=== PATIENT | female | born 1950 | race Hispanic/Latino ===

== ENCOUNTER → 2018-02-04 | Day surgery (SDC) | payer MEDICARE ==
[2018-02-03 11:40] LABS: BASOPHILS # (AUTO) 0.1 (0.0-0.1); BASOPHILS % 0.5 % (0.0-1.0); EOSINOPHILS # (AUTO) 0.4 (0.0-0.4); HEMATOCRIT 36.2 % (34.2-44.1); HEMOGLOBIN 11.5 g/dL (12.0-16.0); LYMPHOCYTES # (AUTO) 3.2 (1.0-3.2); LYMPHOCYTES % 24.3 % (18.0-39.1); MEAN CORPUSCULAR HEMOGLOBIN 27.6 pg (28-32); MEAN CORPUSCULAR HGB CONC 31.8 g/dL (31-35); MEAN CORPUSCULAR VOLUME 86.8 fL (81-99); MONOCYTES # (AUTO) 0.9 (0.2-0.8); MONOCYTES % 6.7 % (4.4-11.3); NEUTROPHILS # (AUTO) 8.6 (2.1-6.9); NEUTROPHILS % 65.3 % (38.7-80.0); PLATELET COUNT 392 x10e3/uL (140-360); RED BLOOD COUNT 4.17 x10e6/uL (3.6-5.1); RED CELL DISTRIBUTION WIDTH 13.9 % (11.7-14.4)
[~2018-02-04] MED LIST: ALENDRONATE SOD70 MG PO; AMLODIPINE BESYL5 MG PO; CRESTOR20 MG PO; FENTANYL CITRATE/PF 100MCG/2 ML INJ ONE; HYDROCHLOROTHIA25 MG PO; LEVOTHYROXINE25 MCG PO; LOSARTAN-HCTZ1 EAC2 PO; METFORMIN HCL500 MG PO; MIDAZOLAM HCL 2 MG/2 ML VIAL ONE; PROPOFOL IV EMULSION 10 MG/ML 50 ML VIAL ONE; TRESIBA SQ; TRULICITY SQ; VITAMIN D350000 UNIT PO
--- OUTSIDE RECORDS SUMMARY | 2018-02-04 05:32 | XMS REPORT ---
Author Organization Unknown Address [address] [place] [address] Phone [phone] Care Team Providers Care Mask Inspector Name Role Phone Juan Pablo, R Unavailable Unavailable Allergies Code Code System Name Reaction Severity Status Onset NKDA Medications Name Status Start Date Stop Date alendronate 70 mg tablet Take 1 tablet every week by oral route for 90 days. Active Not available amlodipine 5 mg tablet TAKE 1 TABLET BY MOUTH EVERY DAY Active Not available atorvastatin 20 mg tablet Completed 01/04/2018 BD Insulin Syringe Ultra-Fine 1 mL 31 gauge x 5/" Active Not available BD Ultra-Fine Mini Pen Needle 31 gauge x 12/04" Active Not available cholecalciferol (vitamin D3) 50,000 unit capsule Take 1 capsule every week by oral route for 90 days. Active Not available gemfibrozil 600 mg tablet Completed 2016 Humalog U-100 Insulin 100 unit/mL subcutaneous solution Completed 2017 hydrochlorothiazide 25 mg tablet TAKE 1 TABLET BY MOUTH EVERY DAY Active Not available Januvia 100 mg tablet Take 1 tablet every day by oral route. Completed 11/26/2016 Lantus U-100 Insulin 100 unit/mL subcutaneous solution inject 60 units at bed time every day Completed 11/26/2016 levothyroxine 25 mcg tablet TAKE 1 TABLET(S) EVERY DAY BY ORAL ROUTE FOR 90 DAYS. Active Not available losartan 100 mg-hydrochlorothiazide 12.5 mg tablet Take 1 tablet every day by oral route for 90 days. Active Not available losartan 50 mg tablet Completed 06/01/2017 losartan 50 mg-hydrochlorothiazide 12.5 mg tablet Completed 01/04/2018 metformin 500 mg tablet TAKE 1 TABLET(S) TWICE A DAY BY ORAL ROUTE FOR 90 DAYS. Active Not available rosuvastatin 20 mg tablet Take 1 tablet every day by oral route for 90 days. Active Not available Toujeo SoloStar U-300 Insulin 300 unit/mL (1.5 mL) subcutaneous pen inject 50-70 units once a day Completed 01/04/2018 Tresiba FlexTouch U-200 insulin 200 unit/mL (3 mL) subcutaneous pen Inject 50 units every day by subcutaneous route for 30 days. Active Not available Trulicity 1.5 mg/0.5 mL subcutaneous pen injector Inject 0.5 mL every week by subcutaneous route for 90 days. 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 Body Mass Index 30+ - Obesity Active 01/04/2018 Procedures Date Name Performed by 09/21/1978 Delivery Information not available [address] [place] [address] (Work Place) 2016 MAMMO, Screening, Bilateral [facility] [address] [facility] [place] [address] (Work Place) 2016 Bone Density, Dual Photon Absorptiometry [facility] [address] [facility] [address] [place], [place] [id number] (Work Place) 06/01/2017 MAMMO, Screening, Bilateral [facility] [address] [place] [address] (Work Place) 01/04/[address] [phone] (Work Place) 01/04/2018 US, Echocardiogram [facility] [address] [facility] [address] [place] [address] (Work Place) Lab Results Date Name Specimen Result Interpretation Description Value Range Status Address 10/05/2017 PTH (Parathyroid Hormone), Intact, Serum or Plasma High Parathyroid Hormone, Intact 70 pg/mL 14-64 pg/mL Final [facility]: [address] ana [address] 10/05/2017 Lipid Panel, Serum High Cholesterol, Total 211 mg/dL < 200 mg/dL Final [facility]: [address] Normal HDL Cholesterol 54 mg/dL >50 mg/dL Final [facility]: [address] High Triglycerides 355 mg/dL <150 mg/dL Final [facility]: [address] High LDL-cholesterol 110 mg/dL (calc) Final [facility]: [address] Normal Chol/hdlc Ratio 3.9 (calc) <5.0 (calc) Final [facility]: [address] High Non HDL Cholesterol 157 mg/dL (calc) <130 mg/dL (calc) Final [facility]: [address] 10/05/2017 CMP, Serum or Plasma High Glucose 119 mg/dL 65-99 mg/ dL Final [facility]: [address] Normal Urea Nitrogen (BUN) 24 mg/dL 7-25 mg/dL Final [facility]: [address] High Creatinine 1.15 mg/dL 0.50-0.99 mg/dL Final [facility]: [address] Low eGFR Non-afr. [place] African 50 mL/min/1.73m2 > or=60 mL/min/ 1.73m2 Final [facility]: [address] Low eGFR 58 mL/min/1.73m2 > or=60 mL/min/ 1.73m2 Final [facility]: [address] Normal BUN/creatinine Ratio 21 (calc) 6-22 (calc) Final [facility]: [address] Normal Sodium 138 mmol/L 135-146 mmol/L Final [facility]: [address] Normal Potassium 4.2 mmol/L 3.5-5.3 mmol/L Final [facility]: [address] [place] Normal Chloride 99 mmol/L 98-110 mmol/L Final [facility]: [address] [place] Normal Carbon Dioxide 20 mmol/L 20-31 mmol/L Final [facility]: [address] [place] Normal Calcium 10.1 mg/dL 8.6-10.4 mg/dL Final [facility]: [address] [place] Normal Protein, Total 7.4 g/dL 6.1-8.1 g/dL Final [facility]: [address]055 [facility] Albumin 4.4 g/dL 3.6-5.1 g/dL Final [facility]: [address] [place] Normal Globulin 3.0 g/dL (calc) 1.9-3.7 g/dL (calc) Final [facility]: [address] [place] Normal Albumin/globulin Ratio 1.5 (calc) 1.0-2.5 (calc) Final [facility]: [address] [place] Normal Bilirubin, Total 0.3 mg/dL 0.2-1.2 mg/dL Final [facility]: [address] [place] Normal Alkaline Phosphatase 105 U/L 33-130 U/L Final [facility] 9055 [facility] Normal Ast 13 U/L 10-35 U/L Final [facility]: 9055 [facility] Normal Alt 14 U/L 6-29 U/L Final [facility]: [address] Let[address] Powers [place] 10/05/2017 CBC W/ Auto Diff High White Blood Cell Count 11.7 thousand/uL 3.8-10.8 thousand/uL Final [facility]: 9055 [facility] Red Blood Cell Count 4.17 million/uL 3.80-5.10 million/ uL Final [facility]: 9055 [facility] Normal Hemoglobin 11.7 g/dL 11.7-15.5 g/dL Final [facility]: 9055 [facility] Normal Hematocrit 35.0 % 35.0-45.0 % Final [facility]: [address] Normal Mcv 83.9 fL 80.0-100.0 fL Final [facility]: [address] Normal Mch 28.1 pg 27.0-33.0 pg Final [facility]: [address] Normal Mchc 33.4 g/dL 32.0-36.0 g/dL Final [facility]: [address] Normal Rdw 13.9 % 11.0-15.0 % Final [facility]: [address] High Platelet Count 475 thousand/uL 140-400 thousand/uL Final [facility]: [address] Normal Mpv 10.7 fL 7.5-12.5 fL Final [facility]: [address] Normal Absolute Neutrophils 7324 cells/uL 3807-8640 cells/uL Final [facility]: [address] Normal Absolute Lymphocytes 3194 cells/uL 850-3900 cells/uL Final [facility]: [address] Normal Absolute Monocytes 761 cells/uL 200-950 cells/uL Final [facility]: [address] Normal Absolute Eosinophils 374 cells/uL 15-500 cells/uL Final [facility]: [address] [place] Normal Absolute Basophils 47 cells/uL 0-200 cells/uL Final [facility]: [address] Normal Neutrophils 62.6 % Final [facility]: [address] Normal Lymphocytes 27.3 % Final [facility]: [address] Normal Monocytes 6.5 % Final [facility]: [address] Normal Eosinophils 3.2 % Final [facility]: [address] Powers, [place] Normal Basophils 0.4 % Final [facility]: [address] 10/05/2017 T4, Free, Serum Normal T4, Free 1.2 NG/dL 0.8-1.8 NG/ dL Final [facility]: [address] Powers, [place] 10/05/2017 TSH, Serum or Plasma Normal Tsh 0.69 mIU/L 0.40-4.50 mIU/L Final [facility]: [address] 10/05/2017 Vitamin D, 25-Hydroxy, Total, Serum Low Vitamin D,25-Oh, total,ia 11 NG/mL 30-100 NG/mL Final [facility]: [address] Comment Final [facility]: [address] ana [address] 10/05/2017 Test in Question- Ambiguous Order Comment Final [facility]: [address] Unclear Order: general health panel or billin Final [facility]: [address] Comment Final [facility]: [address] 10/05/2017 Test Authorization Test Name: vitamin D 25 oh ttl Final [facility]: [address] Test Code: 93722 Final [facility]: [address] Client Contact: juan butler Final [facility]: [address] [place] [address] Report Always Message Signature Final [facility]: [address] Comment Final [facility]: [address] ana [address] 10/05/2017 HbA1C (Hemoglobin a1C), Blood High Hemoglobin a1C 8.7 % of total HGB <5.7 % of total HGB Final [facility]: [address] 06/01/2017 CBC W/ Auto Diff High White Blood Cell Count 11.6 thousand/uL 3.8-10.8 thousand/uL Final [facility]: [address] Low Red Blood Cell Count 3.62 million/uL 3.80-5.10 million/uL Final [facility]: 55 [address] Low Hemoglobin 10.4 g/dL 11.7-15.5 g/dL Final [facility]: [address] Low Hematocrit 31.6 % 35.0-45.0 % Final [facility]: 55 [address] Normal Mcv 87.3 fL 80.0-100.0 fL Final [facility]: [address] Normal Mch 28.7 pg 27.0-33.0 pg Final [facility]: [address] Normal Mchc 32.9 g/dL 32.0-36.0 g/dL Final [facility]: [address] Normal [address]w 14.0 % 11.0-15.0 % Final [facility]: [address] High Platelet Count 473 thousand/uL 140-400 thousand/uL Final [facility]: [address] Normal Mpv 10.9 fL 7.5-12.5 fL Final [facility]: [address] Normal Absolute Neutrophils 6624 cells/uL 5377-6772 cells/uL Final [facility]: [address] Normal Absolute Lymphocytes 3120 cells/uL 850-3900 cells/uL Final [facility]: [address] High Absolute Monocytes 1288 cells/uL 200-950 cells/uL Final [facility]: [address] High Absolute Eosinophils 522 cells/uL 15-500 cells/uL Final [facility]: [address] Normal Absolute Basophils 46 cells/uL 0-200 cells/uL Final [facility]: [address] Normal Neutrophils 57.1 % Final [facility]: [address] Normal Lymphocytes 26.9 % Final [facility]: [address] Normal Monocytes 11.1 % Final [facility]: [address] Normal Eosinophils 4.5 % Final [facility]: [address] Normal Basophils 0.4 % Final [facility]: [address] 06/01/2017 HbA1C (Hemoglobin a1C), Blood High A1C W/eag 8.2 % 1.0- 5.7 % Final [facility]: [address] [place] Average Blood Glucose 189 mg/dL Final [facility]: [address] [place] [address], [place] 06/01/2017 PTH (Parathyroid Hormone), Intact, Serum or Plasma High Parathyroid Hormone, Intact 90 pg/mL 14-64 pg/mL Final [facility]: [address] 06/01/2017 CMP, Serum or Plasma Alt 19 U/L 0-55 U/L Final [facility]: [address] Ast 17 U/L 5-34 U/L Final [facility]: [address] Bun 14.8 mg/dL 9.8-20.1 mg/dL Final [facility]: [address] Alk Phos 93 unit/L 40-150 unit/L Final [facility]: [address] High Glucose 138 mg/dL 70-99 mg/dL Final [facility]: [address] Albumin 3.9 g/dL 3.5-5.0 g/dL Final [facility]: [address] Creatinine 1.11 mg/dL 0.57-1.11 mg/dL Final [facility]: [address] Low eGFR Non- 49 mL/min/1.73m2 >60 mL/min/ 1.73m2 Final [facility]: [address] Total Bilirubin 0.2 mg/dL 0.2-1.2 mg/dL Final [facility]: [address] Low eGFR - 60 mL/min/1.73m2 >60 mL/min/ 1.73m2 Final [facility]: [address] Sodium 145 mEq/L 136-145 mEq/L Final [facility]: [address] Potassium 4.5 mEq/L 3.5-5.1 mEq/L Final [facility]: [address] Chloride 107 mmol/L 98-107 mmol/L Final [facility]: [address] Total Protein 7.4 g/dL 6.4-8.3 g/dL Final [facility]: [address] Calcium 9.3 mg/dL 8.4-10.2 mg/dL Final [facility]: [address] Co2 25.7 mmol/L 23.0-31.0 mmol/L Final [facility]: [address] Anion Gap 12 calc Final [facility]: [address] 06/01/2017 Lipid Panel, Serum Hdl 45 mg/dL 40-60 mg/dL Final [facility]: [address] High Triglyceride 291 mg/dL 0-149 mg/dL Final [facility]: [address] VLDL Calc. 58 mg/dL Final [facility]: [address] cholesterol/HDL Ratio 3 mg/dL Final [facility]: [address] non-HDL Cholesterol Calc. 112 mg/dL 0-160 mg/dL Final [facility]: [address] Cholesterol 157 mg/dL 0-199 mg/dL Final [facility]: [address] LDL Calc. 54 mg/dL 0-130 mg/dL Final [facility]: [address] 06/01/2017 T4, Free, Serum T4 Free 0.87 NG/dL 0.70-1.48 NG/dL Final [facility]: [address] 06/01/2017 TSH, Serum or Plasma Tsh 1.452 uIU/mL 0.350-4.940 uIU /mL Final [facility]: [address] 02/26/2017 HbA1C (Hemoglobin a1C), Blood High Hemoglobin a1C 9.6 % of total HGB <5.7 % of total HGB Final [facility]: [address] EAG (mg/dL) 229 (calc) Final [facility]: [address] EAG (mmol/L) 12.7 (calc) Final [facility]: [address] 02/26/2017 T4, Total, Serum Normal T4 (Thyroxine), Total 8.9 mcg/ dL 4.5-12.0 mcg/dL Final [facility]: 9055 [facility] 02/[facility]2017 TSH, Serum or Plasma Normal Tsh 0.65 mIU/L 0.40-4.50 mIU/L Final [facility]: 9055 [facility] 02/26/2017 CBC W/ Auto Diff High White Blood Cell Count 12.0 thousand/uL 3.8-10.8 thousand/uL Final [facility]: 9055 [facility] Normal Red Blood Cell Count 4.19 million/uL 3.80-5.10 million/ uL Final [facility]: 9055 [facility] Normal Hemoglobin 11.9 g/dL 11.7-15.5 g/dL Final [facility]: [address] [place] [address] Normal Hematocrit 36.6 % 35.0-45.0 % Final [facility]: 9055 [facility] Normal Mcv 87.4 fL 80.0-100.0 fL Final [facility]: [address] [place] [address] Normal Mch 28.5 pg 27.0-33.0 pg Final [facility]: 9055 [facility] Normal Mchc 32.5 g/dL 32.0-36.0 g/dL Final [facility]: [address] [place] [address] Normal Rdw 14.8 % 11.0-15.0 % Final [facility]: 9055 [facility] Normal Platelet Count 398 thousand/uL 140-400 thousand/uL Final [facility]: 9055 [facility] Normal Mpv 8.6 fL 7.5-12.5 fL Final [facility]: [address] [place] High Absolute Neutrophils 8316 cells/uL 5826-3521 cells/uL Final [facility]: 9055 [facility] Normal Absolute Lymphocytes 2328 cells/uL 850-3900 cells/uL Final [facility]: 9055 [facility] Normal Absolute Monocytes 780 cells/uL 200-950 cells/uL Final [facility]: [address] [place] High Absolute Eosinophils 540 cells/uL 15-500 cells/uL Final [facility]: [address] [place] Normal Absolute Basophils 36 cells/uL 0-200 cells/uL Final [facility]: [address] Powers, [place] Normal Neutrophils 69.3 % Final [facility]: [address], [place] Normal Lymphocytes 19.4 % Final [facility]: [address] Powers, [place] Normal Monocytes 6.5 % Final [facility]: [address], [place] Normal Eosinophils 4.5 % Final [facility]: [address], [place] Normal Basophils 0.3 % Final [facility]: 9055 [facility] 02/26/2017 CMP, Serum or Plasma High Glucose 158 mg/dL 65-99 mg/ dL Final [facility]: [address] [place] [address] Normal Urea Nitrogen (BUN) 16 mg/dL 7-25 mg/dL Final [facility]: [address] [place] [address] Normal Creatinine 0.96 mg/dL 0.50-0.99 mg/dL Final [facility]: [address] [place] [address] Normal eGFR Non-afr. [place] 62 mL/min/1.73m2 > or=60 mL/min/ 1.73m2 Final [facility]: [address] Normal eGFR 72 mL/min/1.73m2 > or=60 mL/min/ 1.73m2 Final [facility]: [address] BUN/creatinine Ratio not applicable (calc) 6-22 (calc) Final [facility]: [address] [place] [address] Normal Sodium 140 mmol/L 135-146 mmol/L Final [facility]: [address] Normal Potassium 4.1 mmol/L 3.5-5.3 mmol/L Final [facility]: [address] Normal Chloride 101 mmol/L 98-110 mmol/L Final [facility]: [address] Normal Carbon Dioxide 25 mmol/L 20-31 mmol/L Final [facility]: [address] Normal Calcium 10.2 mg/dL 8.6-10.4 mg/dL Final [facility]: [address] Normal Protein, Total 7.7 g/dL 6.1-8.1 g/dL Final [facility]: [address] Normal Albumin 4.5 g/dL 3.6-5.1 g/dL Final [facility]: [address] Normal Globulin 3.2 g/dL (calc) 1.9-3.7 g/dL (calc) Final [facility]: [address] Normal Albumin/globulin Ratio 1.4 (calc) 1.0-2.5 (calc) Final [facility]: [address] Normal Bilirubin, Total 0.2 mg/dL 0.2-1.2 mg/dL Final [facility]: [address] Normal Alkaline Phosphatase 98 U/L 33-130 U/L Final [facility]: [address] Normal Ast 21 U/L 10-35 U/L Final [facility]: [address] Normal Alt 21 U/L 6-29 U/L Final [facility]: [address] 02/26/2017 Lipid Panel, Serum Normal Cholesterol, Total 181 mg/dL 125-200 mg/dL Final [facility]: [address] Normal HDL Cholesterol 53 mg/dL > or=46 mg/dL Final [facility]: [address] High Triglycerides 293 mg/dL <150 mg/dL Final [facility]: [address] Normal LDL-cholesterol 69 mg/dL (calc) <130 mg/dL (calc) Final [facility]: [address] Normal Chol/hdlc Ratio 3.4 (calc) < or=5.0 (calc) Final [facility]: [address] Normal Non HDL Cholesterol 128 mg/dL (calc) Final [facility]: [address]055 [address] [facility] [address], [place] 02/26/2017 PTH (Parathyroid Hormone), Intact, Serum or Plasma Normal Parathyroid Hormone, Intact 42 pg/mL 14-64 pg/mL Final [facility]: 9055 [address] [facility] [address], [place] 2016 Lipid Panel, Serum Normal Cholesterol, Total 175 mg/dL 125-200 mg/dL Final [facility]: [address], [place] Normal HDL Cholesterol 52 mg/dL > or=46 mg/dL Final [facility]: [address], [place] High Triglycerides 218 mg/dL <150 mg/dL Final [facility]: [address], [place] Normal LDL-cholesterol 79 mg/dL (calc) <130 mg/dL (calc) Final [facility]: [address], [place] Normal Chol/hdlc Ratio 3.4 (calc) < or=5.0 (calc) Final [facility]: [address], [place] Normal Non HDL Cholesterol 123 mg/dL (calc) Final [facility]: [address], [place] 2016 CMP, Serum or Plasma High Glucose 140 mg/dL 65-99 mg/ dL Final [facility]: [address], [place] Normal Urea Nitrogen (BUN) 23 mg/dL 7-25 mg/dL Final [facility]: [address], [place] High Creatinine 1.31 mg/dL 0.50-0.99 mg/dL Final [facility]: [address], [place] Low eGFR Non-afr. [place] 43 mL/min/1.73m2 > or=60 mL/min/ 1.73m2 Final [facility]: [address], [place] Low eGFR 49 mL/min/1.73m2 > or=60 mL/min/ 1.73m2 Final [facility]: [address], [place] Normal BUN/creatinine Ratio 18 (calc) 6-22 (calc) Final [facility]: [address], [place] Normal Sodium 141 mmol/L 135-146 mmol/L Final [facility]: [address] [facility], [place] Normal Potassium 3.8 mmol/L 3.5-5.3 mmol/L [facility]: [address] [facility], [place] Normal Chloride 102 mmol/L 98-110 mmol/L [facility]: [address] [facility], [place] Normal Carbon Dioxide 25 mmol/L 20-31 mmol/L Final [facility]: [address] [facility], [place] Normal Calcium 9.6 mg/dL 8.6-10.4 mg/dL [facility]: [address] [facility], [place] Normal Protein, Total 7.4 g/dL 6.1-8.1 g/dL [facility]: [address] [facility], [place] Normal Albumin 4.3 g/dL 3.6-5.1 g/dL [facility]: [address] [place] [address], [place] Normal Globulin 3.1 g/dL (calc) 1.9-3.7 g/dL (calc) Final [facility]: [address] [facility], [place] Normal Albumin/globulin Ratio 1.4 (calc) 1.0-2.5 (calc) [facility]: [address] [facility], [place] Normal Bilirubin, Total 0.2 mg/dL 0.2-1.2 mg/dL [facility]: [address] [place] [address], [place] Normal Alkaline Phosphatase 81 U/L 33-130 U/L [facility]: [address] [place] [address], [place] Normal Ast 16 U/L 10-35 U/L [facility]: [address] [place] [address], Raj[place] Normal Alt 15 U/L 6-29 U/L [facility]: [address] [facility], [place] 2016 CBC W/ Auto Diff High White Blood Cell Count 11.3 thousand/uL 3.8-10.8 thousand/uL [facility]: [address] [place] [address], Rajan Normal Red Blood Cell Count 3.97 million/uL 3.80-5.10 million/ uL [facility]: [address] [facility], [place] Low Hemoglobin 11.3 g/dL 11.7-15.5 g/dL Final [facility]: [address], [place] Normal Hematocrit 35.1 % 35.0-45.0 % Final [facility]: [address], [place] Normal Mcv 88.4 fL 80.0-100.0 fL Final [facility]: [address], [place] Normal Mch 28.5 pg 27.0-33.0 pg Final [facility]: [address], [place] Normal Mchc 32.2 g/dL 32.0-36.0 g/dL Final [facility]: [address], [place] Normal Rdw 14.1 % 11.0-15.0 % Final [facility]: [address], [place] High Platelet Count 427 thousand/uL 140-400 thousand/uL Final [facility]: [address], [place] Normal Mpv 8.9 fL 7.5-12.5 fL Final [facility]: [address], [place] High Absolute Neutrophils 7854 cells/uL 5526-8382 cells/uL Final [facility]: [address], [place] Normal Absolute Lymphocytes 2226 cells/uL 850-3900 cells/uL Final [facility]: [address], [place] Normal Absolute Monocytes 836 cells/uL 200-950 cells/uL Final [facility]: [address], [place] Normal Absolute Eosinophils 305 cells/uL 15-500 cells/uL Final [facility]: [address], [place] Normal Absolute Basophils 79 cells/uL 0-200 cells/uL Final [facility]: [address], [place] Normal Neutrophils 69.5 % Final [facility]: [address], [place] Normal Lymphocytes 19.7 % Final [facility]: [address], [place] Normal Monocytes 7.4 % Final [facility]: [address], [place] Normal Eosinophils 2.7 % Final [facility]: [address], [place] Normal Basophils 0.7 % Final [facility]: [address], [place] 2016 T4, Total, Serum Normal T4 (Thyroxine), Total 8.4 mcg/ dL 4.5-12.0 mcg/dL Final [facility]: [address] [facility], [place] 2016 TSH, Serum or Plasma High Tsh 5.19 mIU/L 0.40-4.50 mIU/ L Final [facility]: [address] [facility], [place] 2016 HbA1C (Hemoglobin a1C), Blood High Hemoglobin a1C 10.5 % of total HGB <5.7 % of total HGB Final [facility]: [address] [facility], [place] 2016 Fecal Occult Blood, Stool Fecal Globin by [employer]. ( Medicare) Final [facility]: [address] [facility], [place] Electrocardiogram No observation recorded. [facility]: [address] [facility] [address], [place] Electrocardiogram Rate & Rhythm [facility]: [address] [facility] [address], [place] Qrs [facility]: [address] [facility] [address], [place] Interval [facility]: [address] [address], [place] QRS Duration [facility] : [address] [address], [place] QT Interval [facility]: [address] [address], [place] Albumin:creatinine Ratio, Urine Type Urine Microlalbumin 30 mg/ L [facility]: [address] [facility] [address], [place] Type Urine Creatinine 200 mg/dL [facility]: [address] [address], [place] Type A:C Ratio <30 mg/g (Normal) [facility]: [address] [facility] [address], [place] Past Encounters 01/04/2018 Adult Health Examination; Advance Directive Discussed with Patient; Electrocardiogram Abnormal; Chronic Kidney Disease Due to Type 2 Diabetes Mellitus; Hypothyroidism; Hypertensive Renal Disease; Chronic Kidney Disease Stage 3; Hyperlipidemia; Vitamin D Deficiency; Osteoporosis; Pneumococcal Vaccination; Body Mass Index 30+ - Obesity; Depression Screening; Screening for Malignant Neoplasm of Colon; Hepatitis C Screening NIRMAL Mahmood: [address] [phone], Ph. 10/05/2017 Hypertensive Renal Disease; Chronic Kidney Disease Due to Type 2 Diabetes Mellitus; Hyperlipidemia; Hypothyroidism; Osteoporosis; Immunization; Chronic Kidney Disease Stage 3 Regina SwansonSYDNI: [address] [address], Ph. 06/01/2017 Chronic Kidney Disease Due to Type 2 Diabetes Mellitus; Type 2 Diabetes Mellitus ; Hypertensive Renal Disease; Hyperlipidemia; Hypothyroidism; Osteoporosis; Chronic Kidney Disease Stage 3; Screening Mammography Regina SwansonSYDNI: [id number] [place] [phone], Ph. [phone] 02/26/2017 Hyperlipidemia; Chronic Kidney Disease Due to Type 2 Diabetes Mellitus; Chronic Kidney Disease Stage 3; Hypertensive Renal Disease; Thyroid Function Tests Abnormal Regina SwansonSYDNI: [id number] [address], Ph. [phone] 11/26/2016 Type 2 Diabetes Mellitus; Subclinical Hypothyroidism; Benign Essential Hypertension; Chronic Kidney Disease Due to Type 2 Diabetes Mellitus; Chronic Kidney Disease Stage 3 Luc Almeida MD: [id number] [place] [phone], Ph. 2016 Adult Health Examination; Body Mass Index 30+ - Obesity; Benign Essential Hypertension; Type 2 Diabetes Mellitus; Diabetic on Insulin; Hyperlipidemia; Osteoporosis; Advance Directive Discussed with Patient; Postmenopausal State; Screening Mammography; Screening for Malignant Neoplasm of Colon Regina SwansonSYDNI: [address] [phone], Ph. Social History Smoking Status Never Smoker Vaccine List Vaccine Type zoster 09/21/2013 Notes: Refuses flu vaccine Plan of Care Patient Instructions Screening Recommendations 1. Vaccines Pneumococcal: discussed today and information sent with patient in their [employer] health folder Influenza: discussed today and information sent with patient in their [employer] health folder Shingles: discussed today and information sent with patient in their [employer] health folder Tetanus: discussed today and information sent with patient in their [employer] health folder 2. Mammography Screening: discussed today and information sent with patient in their [employer] health folder 3. Colorectal cancer Screening Colonoscopy: discussed today and information sent with patient in their [employer] health folder 4. Bone Mass Measurement: discussed today 5. Pap test / Pelvic Exam Screening: discussed today 6. Eye Exam Screening: discussed today 7. Cholesterol Screening: discussed today 8. Diabetes Screening: discussed today It was good to see you in the office today for your Medicare Annual Wellness Visit. You have been provided some information on healthy nutrition, including a diet rich in fruits and vegetables, minimizing simple carbohydrates, salt, and saturated fats. I want to encourage regular cardiovascular exercise such as walking at least 30 minutes daily, 5 times per week. Please remember to schedule any preventive health measures that we talked about today. You have also been provided education on fall prevention and community- based lifestyle interventions to help reduce health risks and promote healthy living in your [employer] folder. It was good to see you in the office today for your Medicare Annual Wellness Visit. You have been provided some information on healthy nutrition, including a diet rich in fruits and vegetables, minimizing simple carbohydrates, salt, and saturated fats. I want to encourage regular cardiovascular exercise such as walking at least 30 minutes daily, 5 times per week. Please remember to schedule any preventive health measures that we talked about today. You have also been provided education on fall prevention and community- based lifestyle interventions to help reduce health risks and promote healthy living in your [employer] folder. Reminders Provider Appointments None recorded. Lab None recorded. Referral None recorded. Procedures None recorded. Surgeries None recorded. Imaging None recorded. Vitals 01/04/2018 02:00PM AWV Height Weight BMI Blood Pressure 4 ft 9 in 147 lbs 31.8 kg/m2 (1) 142/85 mm[Hg] (2) 144/83 mm[Hg] 10/05/2017 02:45PM Est Patient Height Weight BMI Blood Pressure 4 ft 9 in 141.6 lbs 30.6 kg/m2 132/75 mm[Hg] 06/01/2017 01:15PM Est Patient Height Weight BMI Blood Pressure 4 ft 9 in 154 lbs 33.3 kg/m2 139/76 mm[Hg] 02/26/2017 10:00AM Est Patient Height Weight BMI Blood Pressure 4 ft 9 in 149.8 lbs 32.4 kg/m2 145/72 mm[Hg] 11/26/2016 10:30AM Est Patient Height Weight BMI Blood Pressure 4 ft 9 in 154.6 lbs 33.5 kg/m2 157/76 mm[Hg] 2016 09:30AM [employer] Height Weight BMI Blood Pressure 4 ft 9 in 150 lbs 32.5 kg/m2 142/79 mm[Hg] 10/08/2010 Weight 134.6 lbs 12/07/2008 Weight 134 lbs 04/19/2008 Weight 135.1 lbs 06/14/2007 Height Weight 4 ft 9 in 132.8 lbs 12/14/2006 Height Weight 4 ft 9 in 136.8 lbs 12/10/2006 Height Weight 4 ft 9 in 136.7 lbs 10/23/2006 Height Weight 4 ft 9 in 136.7 lbs 09/09/2006 Height Weight 4 ft 9 in 139.3 lbs 08/10/2006 Weight 140.6 lbs 07/29/2006 Weight 138 lbs 07/24/2006 Weight 144 lbs 07/20/2006 Height Weight 4 ft 9 in 141.8 lbs 07/13/2006 Height Weight 4 ft 9 in 142.7 lbs 04/16/2006 Height Weight 4 ft 9 in 148 lbs 09/04/2005 Height Weight 4 ft 9 in 138 lbs 05/13/2005 Height Weight 4 ft 9 in 139 lbs 03/05/2005 Weight 135 lbs 12/10/2004 Weight 139 lbs 07/25/2004 Weight 149 lbs 06/26/2004 Weight 144 lbs
== END | disposition home or self-care (01) ==
LOC: OR 05:30
PROVIDERS: ATTEND Internal Medicine Gastroenterology
DX: Z12.11 Encounter for screening for malignant neoplasm of colon (principal); D12.3 Benign neoplasm of transverse colon; D12.4 Benign neoplasm of descending colon; I10 Essential (primary) hypertension; E11.9 Type 2 diabetes mellitus without complications; E66.3 Overweight; K57.30 Diverticulosis of large intestine without perforation or abscess without bleeding; K64.8 Other hemorrhoids; E03.9 Hypothyroidism, unspecified; I44.0 Atrioventricular block, first degree; Z01.810 Encounter for preprocedural cardiovascular examination; Z01.812 Encounter for preprocedural laboratory examination; Z68.29 Body mass index [BMI] 29.0-29.9, adult; Z79.84 Long term (current) use of oral hypoglycemic drugs
CPT/HCPCS: 36415 ×2; 45385; 82948; 85025; 88305; 93005; J2250